=== PATIENT | female | born 1990 | race Caucasian/White ===

== ENCOUNTER 2017-01-05 12:27 | Emergency (ER) | payer OTHER ==
[~2017-01-05 12:27] MED LIST: PREN1TAB63
--- NOTE | 2017-01-05 14:23 | PD ---
HPI Chief Complaint 38 weeks and 24 days uterine contractions 2 days Travel History International Travel<30 Days: No Contact w/Intl Traveler<30Days: No Known Affected Area: No History of Present Illness HPI Pt is a 26 yo who presents at 38 weeks and 4 days. EDC 01-15-2017, care with [facility]. Pt states she has been having contractions past 2 days but stronger and closer today. Pt had cervical exam 01-03-2017 and was told she was a 'tight 2cm'. No vaginal bleeding, no leaking. Active movements. Weeks Gestation: 38 Para: 0 : 2 Miscarriage: 1 History Past Medical History Medical History: Denies Significant Hx Past Surgical History Narrative Surgical Tonsillectomy in childhood. Surgical History: No Previous Surgery Family History Family History: Negative Social History Alcohol Use: No Tobacco Use: Yes (/2 PPD) Substance Abuse: No Allergies-Medications (Allergen,Severity, Reaction): Uncoded Allergies: PCN (Allergy, Severe, 07/27/11) Home Meds Reported Medications Multivit-Min W/Fe-FA ( Vitamins 0.8 mg) 1 Tab Tab 12/26/16 Review of Systems Except as stated in HPI: all other systems reviewed are Neg Physical Exam Narrative GENERAL: Well-nourished, well-developed patient. SKIN: Warm and dry. HEAD: Normocephalic and atraumatic. EYES: No scleral icterus. No injection or drainage. ENT: No nasal drainage noted. Mucous membranes pink. Airway patent. NECK: Supple, trachea midline. No JVD. CARDIOVASCULAR: Regular rate and rhythm without murmurs, gallops, or rubs. RESPIRATORY: Breath sounds equal bilaterally. No accessory muscle use. BREASTS: Bilateral exam showed no masses , no retractions, no nipple discharge. ABDOMEN/GI: Abdomen soft, non-tender, bowel sounds present, no rebound, no guarding Gravid to [38] weeks size Fundal Height: [38cm] GENITOURINARY: External Genitalia: intact and normal in appearance Cervix: [soft] Dilatation: [2cm] Effacement: [50%] Station: [-3] Presentation: [vertex] Membranes: [intact] Uterine Contractions: [2-4minutes] FHT's: Category: [1] Baseline: [120] Reactive: [-] Variability: [moderate] Decels: [none] EXTREMITIES: No cyanosis or edema. BACK: Nontender without obvious deformity. No CVA tenderness. NEUROLOGICAL: Awake and alert. Motor and sensory grossly within normal limits. Five out of 5 muscle strength in all muscle groups. Normal speech. Data Data Vital Signs Reviewed: Yes [facility] Medical Record Reviewed: Yes Plan 26 yo at 38 weeks and 4 days. presents with c/o contractions. FHR Cat 1, carlitos every 2-4 minutes. cervical exam at intake 2cm/50%/-3, unchanged from exam in the office 3 days ago. We plan re-check in 1 hour. Diagnosis Diagnosis: Primary Impression: with 38 completed weeks gestation Additional Impression: Irregular uterine contractions Faheem Mckeon MD Jan 05, 2017 14:23
--- NOTE | 2017-01-05 14:25 | PD ---
HPI Chief Complaint uterine contractions - 2 days 38 weeks and 4 days Date Seen: Jan 05, 2017 Time Seen: 13:10 Travel History International Travel<30 Days: No Contact w/Intl Traveler<30Days: No Known Affected Area: No History of Present Illness HPI Pt is a 26 yo who presents with c/o uterine contractions. Contractions are about every 2-5 minutes apart. Pt has had contractions past 2 days, but she reports increased frequency today. Active movements. No vaginal leaking or bleeding. Pt states she had a cervical exam 3 days in the office and told she was 2cm dilated. Weeks Gestation: 38 Para: 0 : 2 History Past Medical History Medical History: Denies Significant Hx Past Surgical History Narrative Surgical Tonsillectomy in childhood. Family History Family History: Negative Social History Alcohol Use: No Tobacco Use: Yes (1/2 PPD) Substance Abuse: No Allergies-Medications (Allergen,Severity, Reaction): Uncoded Allergies: PCN (Allergy, Severe, 07/27/11) Home Meds Reported Medications Multivit-Min W/Fe-FA ( Vitamins 0.8 mg) 1 Tab Tab 12/26/16 Review of Systems Except as stated in HPI: all other systems reviewed are Neg Physical Exam Narrative GENERAL: Well-nourished, well-developed patient. SKIN: Warm and dry. HEAD: Normocephalic and atraumatic. EYES: No scleral icterus. No injection or drainage. ENT: No nasal drainage noted. Mucous membranes pink. Airway patent. NECK: Supple, trachea midline. No JVD. CARDIOVASCULAR: Regular rate and rhythm without murmurs, gallops, or rubs. RESPIRATORY: Breath sounds equal bilaterally. No accessory muscle use. BREASTS: Bilateral exam showed no masses , no retractions, no nipple discharge. ABDOMEN/GI: Abdomen soft, non-tender, bowel sounds present, no rebound, no guarding Gravid to [38] weeks size Fundal Height: [39] GENITOURINARY: External Genitalia: intact and normal in appearance Cervix: [soft] Dilatation: [2cm] Effacement: [50% Station: [-3] Presentation: [-] Membranes: [intact ] Uterine Contractions: [2-4 minutes] FHT's: Category: [1] Baseline: [130] Reactive: [-] Variability: [moderate] Decels: [none] EXTREMITIES: No cyanosis or edema. BACK: Nontender without obvious deformity. No CVA tenderness. NEUROLOGICAL: Awake and alert. Motor and sensory grossly within normal limits. Five out of 5 muscle strength in all muscle groups. Normal speech. [facility] Medical Record Reviewed: Yes Plan 26 yo at 38 weeks and 4 days . She reports uterine contractions. Cervical exam at intake was 2cm/50%/-3, and was unchaned after 1 hour of ambulation. Of note, cervical exam was the same 01-03-2017 in the office. Diagnosis Diagnosis: Primary Impression: 38 weeks gestation of Additional Impressions: Uterine contractions during False labor after 37 weeks of gestation without delivery Disposition: 01 DISCHARGE HOME Faheem Mckeon MD Jan 05, 2017 14:25
[2017-01-16] MEDS ORDERED: IBUP800T23 PO (13:18)
== END 2017-01-05 17:21 | disposition home or self-care (01) ==
LOC: HOBED 12:35
DX: O47.1 False labor at or after 37 completed weeks of gestation (principal); O62.9 Abnormality of forces of labor, unspecified; O99.333 Smoking (tobacco) complicating pregnancy, third trimester; Z3A.38 38 weeks gestation of pregnancy
CPT/HCPCS: 59025

== ENCOUNTER 2017-01-10 02:53 | Inpatient (IN) | payer OTHER ==
[~2017-01-10] VITALS: Ht 162.6 cm; Wt 72.0 kg
[2017-01-10] VITALS (33 sets, daily range): BP systolic 95–126; BP diastolic 49–85; PULSE 55–94; RESP 16–20; TEMP 97.5–98.4; O2SAT 99–100
[2017-01-10] MEDS: LACTATED RINGER'S 1000 ML INJ 1,000 ML IV SCH ×2 (03:19→04:44)
[2017-01-10] MEDS ORDERED: LACTATED RINGER'S 1000 ML INJ 1,000 ML IV PRN (03:26)
[2017-01-10] MEDS ORDERED: CITRIC ACID-SODIUM CITRATE LIQ 30 ML UDC PO SCH (03:30)
[2017-01-10] MEDS ORDERED: OXYTOCIN 30 UNITS-500ML PREMIX 500 ML IV ONE (03:30)
[2017-01-10] MEDS ORDERED: MINERAL OIL 10 ML VIAL TOPICAL PRN (03:30)
[2017-01-10] MEDS ORDERED: SODIUM CHLORID 0.9% 500 ML INJ 500 ML IV PRN (03:30)
[2017-01-10] MEDS ORDERED: LIDOCAINE HCL 1% 50 ML VIAL INFIL PRN (03:30)
[2017-01-10] MEDS ORDERED: LIDOCAINE HCL 1% 50 ML VIAL I-DERMAL PRN (03:30)
--- NOTE | 2017-01-10 03:36 | HHI.HP ---
History & Physical H&P Patient Name: Jael Barajas Unit Number: [id number] Date of : 1990 Patient Status: Admitted Inpatient Attending Doctor: Kenyetta Fernandez MD HPI HPI Chief Complaint Contractions, leaking of fluid Travel History International Travel<30 Days: No Contact w/Intl Traveler<30Days: No Known Affected Area: No History of Present Illness HPI 26-year-old 010 IUP at 39.2 care complicated by transfer of care, tobacco use. Patient presents reporting onset of painful contractions at 8 PM last night. They increased in frequency and intensity throughout the night. There are no other aggravating or alleviating factors. She reports that 0128, she experienced a large gush of fluid with continued leaking of clear fluid since that time. She denies any vaginal bleeding. She reports good movement. Weeks Gestation: 39 Para: 0 : 2 History (Limited) History Past Medical History Medical History: Denies Significant Hx Obstetric History Obstetric History 010 SAB 1 Past Surgical History Narrative Surgical Tonsillectomy [place] teeth Family History Family History: Negative Social History Alcohol Use: No Tobacco Use: Yes Substance Abuse: No Allergies-Medications Allergies-Medications (Allergen,Severity, Reaction): Uncoded Allergies: PCN (Allergy, Severe, 07/27/11) Home Meds Reported Medications Multivit-Min W/Fe-FA ( Vitamins 0.8 mg) 1 Tab Tab 12/26/16 ROS Review of Systems Except as stated in HPI: all other systems reviewed are Neg Physical Exam Physical Exam Narrative GENERAL: Well-nourished, well-developed patient. SKIN: Warm and dry. HEAD: Normocephalic and atraumatic. EYES: No scleral icterus. No injection or drainage. ENT: No nasal drainage noted. Mucous membranes pink. Airway patent. NECK: Supple, trachea midline. No JVD. CARDIOVASCULAR: Regular rate and rhythm without murmurs, gallops, or rubs. RESPIRATORY: Breath sounds equal bilaterally. No accessory muscle use. BREASTS: Deferred ABDOMEN/GI: Abdomen soft, non-tender, bowel sounds present, no rebound, no guarding Gravid GENITOURINARY: External Genitalia: intact and normal in appearance. Normal BUS glands. Grossly ruptured membranes. No cervical or vaginal masses appreciated. Grossly normal rugae. SVE 7/complete/-1 as per RN FHT's: heart tones with baseline in the 120s, moderate long-term variability, good accelerations, no decelerations noted with a category 1 tracing/reactive NST EXTREMITIES: No cyanosis or edema. BACK: Nontender without obvious deformity. No CVA tenderness. NEUROLOGICAL: Awake and alert. Motor and sensory grossly within normal limits. Five out of 5 muscle strength in all muscle groups. Normal speech. Psychiatric: Grossly normal memory and affect Musculoskeletal: Grossly normal range of motion, gait, muscle strength Data Data Data Orders Orders Ob (2e) Additional Admit Info (01/10/17 03:03) Fentanyl Inj (Fentanyl Inj) (01/10/17 03:19) Admit To Inpatient (01/10/17 ) Vital Signs (Adult) .Per protocol (01/10/17 03:26) Heart (01/10/17 03:26) Amnioinfusion (01/10/17:26) Urinary Catheter Management .ONCE (01/10/17 03:26) Diet Npo (01/10/17 Breakfast) Lactated Ringer's 1000 Ml Inj (Lr 1000 M (01/10/17 03:26) Lactated Ringer's 1000 Ml Inj (Lr 1000 M (01/10/17 03:26) Sodium Chlorid 0.9% 500 Ml Inj (Ns 500 M (01/10/17 03:30) Sodium Chlor 0.9% 1000 Ml Inj (Ns 1000 M (01/10/17 03:46) Lidocaine 1% Inj (50 Ml) (Xylocaine 1% I (01/10/17 03:30) Citric Acid-Sodium Citrate Liq (Bicitra (01/10/17 03:30) Fentanyl Inj (Fentanyl Inj) (01/10/17 03:30) Fentanyl Inj (Fentanyl Inj) (01/10/17 03:30) Complete Blood Count With Diff (01/10/17:26) Hold Clot (01/10/17:26) Abo/Rh Blood Type (01/10/17:) Urinalysis - C+S If Indicated (01/10/17 03:26) Resp Oxygen Non Rebreathe Mask (01/10/17 ) ^ Epidural / Intrathecal Infus (01/10/17 03:26) Oxytocin 30 Units-500ml Premix (Pitocin (01/10/17 03:30) Lidocaine 1% Inj (50 Ml) (Xylocaine 1% I (01/10/17 03:30) Light Mineral Oil (Muri-Lube Oil) (01/10/17 03:30) Inpatient Certification (01/10/17 ) Specimen To Be Collected PRN (01/10/17 03:26) MDM MDM Plan Assessment/plan: 1. IUP at 39.2 2. Active labor: Expectent management. Discussed risks of SVT with patient and family as well as risks and indications for delivery. All of patient's and her family's questions were answered and consents were signed 3. Tobacco use 4. GBS negative 5. Transfer of care from [place] 6. well-being: Reassuring testing at this time with category 1 heart rate tracing and reactive NST. We'll continue continuous monitoring. 7. A+/rubella immune Kenyetta Fernandez MD Jan 10, 2017 03:35 Kenyetta Fernandez MD Jan 10, 2017 03:35
[2017-01-10 03:44] LABS: AUTOMATED NEUTROPHIL # 7.3 TH/MM3 (1.8-7.7); BASOPHIL # 0.1 TH/MM3 (0-0.2); BASOPHIL % 0.6 % (0.0-2.0); EOSINOPHIL # 0.1 TH/MM3 (0-0.4); EOSINOPHIL % 0.9 % (0.0-4.0); HEMATOCRIT 43.1 % (35.0-46.0); HEMO FLAGS DIFF FINAL; LYMPHOCYTE # 2.7 TH/MM3 (1.0-4.8); MEAN CELL VOLUME 91.8 FL (80.0-100.0); MEAN CORPUSCULAR HEMOGLOBIN 31.4 PG (27.0-34.0); MEAN CORPUSCULAR HGB CONC 34.2 % (32.0-36.0); MONO % 6.8 % (0.0-8.0); NEUT % 66.7 % (16.0-70.0); PLATELET COUNT 207 TH/MM3 (150-450); RED CELL DISTRIBUTION WIDTH 12.6 % (11.6-17.2)
[2017-01-10] MEDS ORDERED: SODIUM CHLOR 0.9% 1000 ML INJ 1,000 ML IV PRN (03:46)
[2017-01-10 04:07] LABS: BLOOD, URINE MOD (NEG); COMMENT (UR) CULTURE INDICATED; CULTURE IF INDICATED CULTURE INDICATED; GLUCOSE,URINE NEG (NEG); KETONE, URINE 10 mg/dL (NEG); MUCUS URINE FEW /lpf (OCC); NITRITE,URINE NEG (NEG); PH, URINE 5.5 (5.0-8.5); SQUAMOUS EPITHELIAL CELL URINE 2 /hpf (0-5); URINE COLOR YELLOW (YELLW/STRAW)
[2017-01-10] MEDS ORDERED: fentaNYL 2MCG-BUPIV 0.125% INJ 100 ML ONE (04:41)
[2017-01-10] MEDS ORDERED: ePHEDrine/NS 25 MG/5 ML SYR ONE (04:41)
[2017-01-10] MEDS ORDERED: ePHEDrine/NS 25 MG/5 ML SYR IV PUSH PRN (05:30)
[2017-01-10] MEDS ORDERED: DO NOT ADMINISTER ANTICOAGULANTS PRN (05:30)
[2017-01-10] MEDS ORDERED: fentaNYL 2MCG-BUPIV 0.125% 100 ML EPIDURAL SCH (05:30)
[2017-01-10] MEDS ORDERED: NO SYSTEM NARCOTICS PRN (05:30)
[2017-01-10] MEDS ORDERED: ALUMINUM/MAGNESIUM/SIMETH 30 ML CUP PO PRN (09:15)
[2017-01-10] MEDS ORDERED: DOCUSATE SODIUM 50 MG/SENNA 8.6 MG TAB PO PRN (09:15)
[2017-01-10] MEDS ORDERED: oxyCODONE/ACETAMINOPHEN 5 MG/325 MG TAB PO PRN ×2 (09:15)
[2017-01-10] MEDS ORDERED: BENZOCAINE 20% TOPICAL SPRAY 60 ML CAN TOPICAL PRN (09:15)
[2017-01-10] MEDS ORDERED: ZOLPIDEM TARTRATE 5 MG TAB PO PRN (09:15)
[2017-01-10] MEDS ORDERED: ONDANSETRON ODT 4 MG TAB PO PRN (09:15)
[2017-01-10] MEDS ORDERED: OXYTOCIN 30 UNITS-500ML PREMIX 500 ML IV SCH (09:15)
[2017-01-10] MEDS ORDERED: SODIUM CHLORIDE 0.9% FLUSH 10 ML FLUSH IV FLUSH PRN (09:15)
[2017-01-10] MEDS ORDERED: WITCH HAZEL 50%/GLYCERIN 12.5% 40 PAD JAR TOPICAL PRN (09:15)
--- NOTE | 2017-01-10 09:15 | PD.OB.DELI ---
Weeks gestation: 39 Gest age assessed date: Jan 10, 2017 Gest age assessed time: 09:06 Pt started active labor?: Yes Medical induction of labor?: No Artificial rupture of membrane: No Anesthesia: Epidural Episiotomy: None Vaginal Delivery: Normal, Spontaneous Presentation: Occiput anterior, Vertex Nuchal Cord: None Delayed cord clamping (45 sec): Yes Infant: Male Delivery date: Jan 10, 2017 Delivery time: 08:35 One Minute : 9 Five Minute : 9 Weight: 2940 Placenta: Spontaneous delivery, Intact, Cord pH Laceration: Vaginal laceration (2x), 1 deg Repair: Vicryl interrupted Estimated blood loss: 250 Additional Information 2 small tears were sutured with 3-0 vicryl. One at the lower right aspect of the vagina and the other at the edge of the right labia. Xiomara Ravi MD R1 Jan 10, 2017 09:15
--- NOTE | 2017-01-10 09:22 | HHI.PR ---
Subjective Remarks Patient progressed through labor to C/C/+2 with reassuring FHR throughout. The patient commenced spontaneous maternal expulsive efforts with excellent descent and reassuring heart tones. The head delivered atraumatically followed by spontaneous and atraumatic expulsion of the anterior shoulder and remainder of . The vigorous was placed on the maternal abdomen and the cord double clamped and cut after a delay. The placenta delivered spontaneously and a first degree vaginal laceration was repaired with excellent hemostasis and cosmesis. Apgars 9/9. and mother doing well. Objective Vital Signs Date Time Temp Pulse Resp B/P (MAP) Pulse Ox O2 Delivery O2 Flow Rate FiO2 01/10/17 08:45 70 115/57 (76) 01/10/17 07:30 19 01/10/17 07:30 64 107/66 (80) 01/10/17 07:15 62 108/69 (82) 01/10/17 07:12 98.0 01/10/17 07:00 61 126/72 (90) 01/10/17 06:45 63 110/65 (80) 01/10/17 06:41 18 01/10/17 06:30 62 107/70 (82) 01/10/17 06:15 61 112/75 (87) 01/10/17 06:00 66 104/69 (81) 01/10/17 05:45 88 96/78 (84) 01/10/17 05:42 18 01/10/17 05:30 67 119/73 (88) 01/10/17 05:15 78 124/85 (98) 99 01/10/17 05:15 78 01/10/17 05:10 68 106/64 (78) 100 01/10/17 05:10 75 01/10/17 05:09 20 01/10/17 05:05 67 100/55 (70) 01/10/17 05:05 100 01/10/17 05:05 94 01/10/17 05:00 84 01/10/17 05:00 100 01/10/17 05:00 75 121/72 (88) 01/10/17 04:56 70 109/69 (82) 01/10/17 04:35 97.5 20 01/10/17 04:30 20 Result Diagram: 01/10/17 0320 Kenyetta Fernandez MD Jan 10, 2017 09:22
[2017-01-10] MEDS ORDERED: DIPHTH/TETANUS/ACEL PERTUSSIS (BOOSTER) 0.5 ML VIAL/PFS IM ONE (14:00)
[2017-01-10] MEDS ORDERED: INFLUENZA VIRUS VACCINE (QUADRIVALENT) 0.5 ML SYR IM ONE (14:15)
[2017-01-10] MEDS: IBUPROFEN 600 MG TAB PO PRN ×2 (15:54→22:00)
[2017-01-10] MEDS: ACETAMINOPHEN 325 MG TAB PO PRN (15:55)
[2017-01-10] MEDS ORDERED: MEASLES, MUMPS, RUBELLA VACCINE 0.5 ML VIAL SQ ONE (16:00)
[2017-01-10] MEDS ORDERED: SODIUM CHLORIDE 0.9% FLUSH 10 ML FLUSH IV FLUSH SCH (21:00)
[2017-01-11] VITALS: RESP 18; TEMP 98
[2017-01-11 04:00] VITALS: BP 97/64; PULSE 66; RESP 18; TEMP 97.2
[2017-01-11] MEDS: IBUPROFEN 600 MG TAB PO PRN ×2 (04:00→09:17)
[2017-01-11 08:00] VITALS: BP 94/56; PULSE 62; RESP 16; TEMP 98.1
--- NOTE | 2017-01-11 08:01 | HHI.OB ---
Subjective Post Day: 1 Remarks Pt seen and examined this morning. day # 1 AFVSS overnight. Decreased lochia. Denies dysuria. No breast tenderness. She is feeding the baby via breast and bottle. Appetite good. No nausea or vomiting. Patient has not yet had a bowel movement, but does endorse bowel gas. Ambulating well. Denies calf pain or shortness of breath. Otherwise, she is doing well this morning and has no other concerns. Objective Vitals/I&O Vital Signs Date Time Temp Pulse Resp B/P (MAP) Pulse Ox O2 Delivery O2 Flow Rate FiO2 01/11/17 04:00 66 18 97/64 (75) 01/11/17 04:00 97.2 01/11/17 00:00 98.0 18 01/10/17 20:00 98.4 01/10/17 20:00 68 18 96/57 (70) 01/10/17 11:45 98.0 55 16 98/67 (77) 01/10/17 10:47 80 95/60 (72) 01/10/17 10:45 17 01/10/17 10:30 77 96/62 (73) 01/10/17 10:15 18 01/10/17 10:15 68 105/59 (74) 01/10/17 10:00 70 17 103/66 (78) 01/10/17 09:46 76 100/58 (72) 01/10/17 09:45 18 01/10/17 09:30 63 104/72 (83) 01/10/17 09:25 98.0 17 01/10/17 09:15 70 103/64 (77) 01/10/17 09:00 68 109/74 (86) 01/10/17 08:45 70 115/57 (76) Objective Remarks GENERAL: Well-nourished, well-developed patient. CARDIOVASCULAR: Regular rate and rhythm without murmurs, gallops, or rubs. RESPIRATORY: Breath sounds equal bilaterally. No accessory muscle use. ABDOMEN/GI: Abdomen soft, non-tender. Fundus: Firm, non-tender at umbilicus. GENITOURINARY: Light to moderate bleeding. EXTREMITIES: No cyanosis or edema, non-tender, without signs of DVT. Medications and IVs Current Medications Medications (Trade) Dose Ordered Sig/Marty Route Start Time Stop Time Status Last Admin (NS Flush) 2 ml BID IV FLUSH 01/10/17 21:00 (NS Flush) 2 ml UNSCH PRN IV FLUSH 01/10/17 09:15 (Tylenol) 650 mg Q4H PRN PO 01/10/17 09:15 01/10/17 15:55 (Motrin) 600 mg Q6H PRN PO 01/10/17 09:15 01/11/17 04:00 (Percocet 5-325 Mg) 1 tab Q4H PRN PO 01/10/17 09:15 01/10/17 22:00 (Percocet 5-325 Mg) 2 tab Q4H PRN PO 01/10/17 09:15 (Americaine 20% Top Spr) 1 spray Q4H PRN TOPICAL 01/10/17 09:15 (Tucks Pads) 1 applic QID PRN TOPICAL 01/10/17 09:15 (Iwona-Colace) 2 tab Q12H PRN PO 01/10/17 09:15 (Ambien) 5 mg HS PRN PO 01/10/17 09:15 (Mag-Al Plus Susp Liq) 15 ml Q8H PRN PO 01/10/17 09:15 (Zofran Odt) 4 mg Q6H PRN PO 01/10/17 09:15 Assessment/Plan Problem List: (1) (spontaneous vaginal delivery) ICD Codes: O80 - Encounter for full-term uncomplicated delivery Assessment and Plan 26 y/o female who is day # 1 s/p . -Continue routine care. -Percocet and Motrin PRN pain. -Encouraged OOB. Advised pelvic rest for 6 wks. -Re: ctrl, she would like to discuss her options at her follow-up appointment. -Anticipate discharge tomorrow with baby. aixa Delaney MD Discharge Planning Likely tomorrow with baby Eric Faye MD R2 Jan 11, 2017 08:01
[2017-01-11] MEDS ORDERED: IBUP-232 PO (09:00)
[2017-01-11] MEDS ORDERED: SENN1TAB PO (09:00)
--- NOTE | 2017-01-11 09:00 | HHI.DCPOC ---
Discharge Care Plan Diagnosis: (1) (spontaneous vaginal delivery) Report Symptoms to Your Doctor -Temperature above 100.5 degrees -Redness, of incision or excessive or foul smelling drainage -Unusual pain or calf pain -Increased vaginal bleeding -Painful or difficulty urinating -Feelings of extreme sadness or anxiety after 2 weeks Goals to Promote Your Health * To prevent worsening of your condition and complications * To maintain your health at the optimal level Directions to Meet Your Goals Take your medications as prescribed Follow your dietary instruction Follow activity as directed Ensure plenty of rest for recovery Drink fluids for hydration Keep your appointments as scheduled Take your immunizations and boosters as scheduled If your symptoms worsen call your PCP, if no PCP go to Urgent Care Center or Emergency Room Smoking is Dangerous to Your Health. Avoid second hand smoke Call the 24-hour crisis hotline for domestic abuse at Eric Faye MD R2 Jan 11, 2017 09:00
[2017-01-11] MEDS: ACETAMINOPHEN 325 MG TAB PO PRN (09:18)
[2017-01-16] MEDS ORDERED: IBUP800T23 PO (13:18)
== END 2017-01-11 13:30 | disposition home or self-care (01) | DRG 775 ==
LOC: HOBED 02:53 → H2EA 03:03 → H1EA 11:11
PROVIDERS: ADMIT Obstetrics & Gynecology; ATTEND Obstetrics & Gynecology
PROC: 10E0XZZ Delivery of Products of Conception, External Approach (ICD-10-PCS; principal; 2017-01-10)
PROC: 0HQ9XZZ Repair Perineum Skin, External Approach (ICD-10-PCS; 2017-01-10)
PROC: 0UQGXZZ Repair Vagina, External Approach (ICD-10-PCS; 2017-01-10)
PROC: 00HU33Z Insertion of Infusion Device into Spinal Canal, Percutaneous Approach (ICD-10-PCS; 2017-01-10)
PROC: 3E0R3BZ Introduction of Anesthetic Agent into Spinal Canal, Percutaneous Approach (ICD-10-PCS; 2017-01-10)
DX: O70.0 First degree perineal laceration during delivery (principal); O99.334 Smoking (tobacco) complicating childbirth; Z37.0 Single live birth; Z3A.39 39 weeks gestation of pregnancy; Z23 Encounter for immunization
CPT/HCPCS: 59025; 81001; 85025; 86900; 86901; 87086; 90686; 90715; J3010; J7120; Q2038